=== PATIENT | male | born 1970 | race Caucasian/White ===

== ENCOUNTER 2022-12-03 09:00 | Outpatient (CLI) | payer BC, SELFPAY | END 2022-12-03 09:01 | disposition home or self-care (01) | LOC: NFLDREF 16:35 | PROVIDERS: PCP Family Medicine; Referring Provider Family Medicine; Visit Provider Physician Assistant Medical | DX: Z00.00 Encounter for general adult medical examination without abnormal findings (principal); Z12.5 Encounter for screening for malignant neoplasm of prostate; Z13.1 Encounter for screening for diabetes mellitus; E78.5 Hyperlipidemia, unspecified; Z86.010 Personal history of colon polyps; Z80.0 Family history of malignant neoplasm of digestive organs | CPT/HCPCS: 80048; 80061; 84153 ==

== ENCOUNTER 2023-04-23 13:52 | Outpatient (CLI) | payer BC, SELFPAY | END 2023-04-23 13:53 | disposition home or self-care (01) | PROVIDERS: PCP Emergency Medicine; Visit Provider Emergency Medicine | DX: E78.5 Hyperlipidemia, unspecified (principal); R07.9 Chest pain, unspecified; J10.1 Influenza due to other identified influenza virus with other respiratory manifestations; J18.9 Pneumonia, unspecified organism | CPT/HCPCS: 85651; 86140; 87040 ==

== ENCOUNTER 2024-04-01 12:42 | Emergency (ER) | payer BC, SELFPAY ==
[2024-04-01 12:59] VITALS: BP 121/80; PULSE 89; RESP 18; TEMP 36.4; O2SAT 98; BMI 25.2
--- NOTE | 2024-04-01 13:38 | CRLHL7_ITS ---
For Patients: As a result of the Century Cures Act, medical imaging exams and procedure reports are released immediately into your electronic medical record. You may view this report before your referring provider. If you have questions, please contact your health care provider. Indication: LUQ AND LOWER ABD PAIN Technique: CT abdomen/pelvis with IV contrast, 98 mL Isovue 370 Comparison: None Findings: Lower thorax: Minimal bibasilar atelectatic changes. Abdomen/pelvis: No suspicious hepatic lesions. Subcentimeter hypodensity in the liver near the diaphragm, likely a benign cyst/hemangioma. The gallbladder and biliary system, spleen, pancreas, and adrenal glands are unremarkable. The kidneys are normal in size and perfused and a normal fashion. No suspicious enhancing renal masses/lesions. Simple appearing subcentimeter renal cysts bilaterally. No renal calculi or hydroureteronephrosis. Mild circumferential bladder wall thickening. The seminal vesicles, prostate, and visualized external genitalia are within normal limits in appearance. There is no evidence of bowel obstruction. The appendix is unremarkable. There are some regions of questionable circumferential wall thickening of the colon, particularly the ascending colon, without significant pericolonic fat stranding. No free fluid or free air. No abscess. No abdominopelvic lymphadenopathy. The vasculature is unremarkable. Soft tissue/musculoskeletal: Small fat containing umbilical hernia. Small metallic BB seen in the subcutaneous fat of the left lower abdomen. The osseous structures are unremarkable in appearance for the patient`s age. Impression: 1. There are some regions of questionable circumferential wall thickening of the colon, particularly the ascending colon, without significant pericolonic fat stranding, nonspecific findings which can be seen with colitis in the appropriate clinical context. 2. No free fluid or free air. No abscess. 3. Mild circumferential bladder wall thickening, which can be seen with cystitis, to correlate with urinalysis. 4. Additional incidental findings as detailed above. Please note that all CT scans at this facility use dose modulation, iterative reconstruction, and/or weight-based dosing when appropriate to reduce radiation dose to as low as reasonably achievable. Dictated by Kennedy Snyder MD @ 04/01/2024 2:19:34 PM (Electronically Signed)
--- NOTE | 2024-04-01 13:53 | ED.ABDPAIN ---
HPI - Abdominal Pain General Date Seen: 04/01/24 Chief Complaint: Abdominal Pain Stated Complaint: stomach pain/ WBC = 18 Time Seen by Provider: 04/01/24 13:25 Source: patient Mode of arrival: ambulatory Limitations: no limitations History of Present Illness HPI narrative: Patient is a 53-year-old male presenting to the emergency department for abdominal pain. States started around 14:30 yesterday he started having left upper quadrant abdominal pain. He has had this pain before he states the last time he was constipated. He had several loose stools in symptoms seem to get better. Was able to eat that evening without issues until the late evening when he had a bowl of cereal. After that he began have symptoms again and more diarrhea. States he has not had a formed stool since before symptoms started. He was having difficulty sleeping throughout the night due to it was getting go to urgent care this morning but they were closed so came to the emergency department. States this morning the pain seemed to radiate to his lower abdomen region. At this time though he is pain free. Did have 1 episode of emesis last night but is not currently feeling nauseated. As he has never had C diff before in states stool looked brown. Has not had any recent antibiotics. States he thinks he may be developing lactose intolerance instead eights both occurrences occurred after having dairy. Denies any previous abdominal surgeries. Denies fevers, chills, chest pain, shortness of breath, lightheadedness, dizziness, dysuria. Related Data Home Medications ?Medication ?Instructions ?Recorded ?Confirmed No Known Home Medications 04/01/24 04/01/24 Allergies Allergy/AdvReac Type Severity Reaction Status Date / Time erythromycin base Allergy Severe Verified 04/01/24 14:03 azithromycin Allergy Intermediate Verified 04/01/24 14:03 Review of Systems Status of ROS Reports: 10 or more systems reviewed and unremarkable except as noted in History and below [facility] Medical History Influenza due to influenza virus, type B ?J10.1 - Influenza due to other identified influenza virus with other respiratory manifestations (ICD-10) CAP (community acquired pneumonia) ?J18.9 - Pneumonia, unspecified organism (ICD-10) Chest pain ?R07.9 - Chest pain, unspecified (ICD-10) Finger injury ?S69.90XA - Unspecified injury of unspecified wrist, hand and finger(s), initial encounter (ICD-10) Hyperlipidemia ?E78.5 - Hyperlipidemia, unspecified (ICD-10) Screening for diabetes mellitus ?Z13.1 - Encounter for screening for diabetes mellitus (ICD-10) Screening for hyperlipidemia ?Z13.220 - Encounter for screening for lipoid disorders (ICD-10) Screening for prostate cancer ?Z12.5 - Encounter for screening for malignant neoplasm of prostate (ICD-10) Tubular adenoma ?D36.9 - Benign neoplasm, unspecified site (ICD-10) Sessile serrated polyp of colon ?D12.6 - Benign neoplasm of colon, unspecified (ICD-10) Finger pain ?M79.646 - Pain in unspecified finger(s) (ICD-10) Surgical History History of esophagogastroduodenoscopy (EGD) ?Z98.890 - Other specified postprocedural states (ICD-10) History of elbow surgery ?Z98.890 - Other specified postprocedural states (ICD-10) History of colonoscopy with polypectomy ?Z98.890 - Other specified postprocedural states (ICD-10) ?Z86.010 - Personal history of colonic polyps (ICD-10) Family History Paternal Grandfather Colorectal cancer Uncle Skin cancer Throat cancer Social History Narrative: alcohol ingestion of more than 4 drinks/week former smoker marijuana use Smoking Status: Never smoker Exam Narrative: Exam Narrative: Const: Well-nourished, Well-developed, in no distress Eyes: PERRL, no conjunctival injection, and symmetrical lids HENT: Atraumatic external nose and ears. Moist mucous membranes. Neck: Symmetric, trachea midline, No thyromegaly. CVS: RRR, No murmurs or gallops. Peripheral pulses 2+ and equal in all extremities RESP: Unlabored respiratory effort. Clear to auscultation bilaterally. GI: Nontender/Nondistended, No rebound or guarding. MSK:Extremities w/o deformity, Normal Active ROM Skin: Warm, Dry. No rashes or lesions. Neuro: Normal Muscle tone, No focal neurological deficits. Psych: Awake, Alert, & Oriented x3. Appropriate mood and affect. Const: Vital Signs, click to edit/add: Vital Signs - 24 hr 04/01/24 12:59 04/01/24 14:36 04/01/24 15:02 Temperature 97.5 F L Pulse Rate 75 73 Pulse Rate [Pulse Oximeter] 89 Respiratory Rate 18 18 Blood Pressure 112/80 114/78 Blood Pressure [Ri ght Upper Arm] 121/80 Pulse Oximetry 98 95 94 Oxygen Delivery Me thod Room Air Room Air Course Vital Signs Vital signs: Initial Vital Signs Temperature 97.5 F L 04/01/24 12:59 Temperature Source Temporal Artery Scan 04/01/24 12:59 Pulse Rate 89 04/01/24 12:59 Respiratory Rate 18 04/01/24 12:59 Blood Pressure 121/80 04/01/24 12:59 Blood Pressure Mean 93 04/01/24 12:59 Pulse Oximetry 98 04/01/24 12:59 Oxygen Delivery Method Room Air 04/01/24 12:59 Vital Signs Temperature 97.5 F L 04/01/24 12:59 Pulse Rate 89 04/01/24 12:59 Respiratory Rate 18 04/01/24 12:59 Blood Pressure 121/80 04/01/24 12:59 Pulse Oximetry 98 04/01/24 12:59 Oxygen Delivery Method Room Air 04/01/24 12:59 Temperature 97.5 F L 04/01/24 12:59 Pulse Rate 73 04/01/24 15:02 Respiratory Rate 18 04/01/24 14:36 Blood Pressure 114/78 04/01/24 15:02 Pulse Oximetry 94 04/01/24 15:02 Oxygen Delivery Method Room Air 04/01/24 14:36 MDM - Abdominal Pain MDM Narrative Medical decision making narrative: Patient is a 53-year-old male presenting for abdominal pain and nausea. Symptoms resolved at this time. Based on his history this could be all from lactose intolerance has developed him but will do further evaluation to look for signs of pancreatitis, diverticulitis, constipation. This seems unlikely to be an SBO with no surgical history. Also seems unlikely to be gallbladder liver she is due to locations. Possible appendicitis since it does radiate down to his right lower quadrant. Does not want anything for pain or nausea at this time. Will order CBC, CMP, lipase, urinalysis. Lab work shows a white count of 18.62. previously He has had white blood cell count of 17, 11, 17. His most recent elevated white count was associated with a pneumonia. Unsure what is his baseline. It is neutrophil predominant CMP shows no concerning abnormalities. CT scan shows regions of questionable circumferential wall thickening of the colon your back could be related to colitis. Although his pain is and the left upper quadrant and this is seen in the ascending colon. There is also some mild circumferential bladder wall thickening. urinalysis shows no clear signs of a UTI. There was a hypodensity in the liver close likely a benign cyst versus hemangioma. I informed the patient of this. he was unable to provide a stool sample in the emergency department and overall I believe C diff is unlikely. at this time I will discharge him home for likely colitis. He does not require antibiotics at this time as he is otherwise well-appearing. a day informed to follow-up with primary care provider and to stay way from lactose until he can fully determine through his primary care provider if he is lactose intolerant. He is agreeable to this plan. Lab Data Labs: Lab Results 04/01/24 04/01/24 Range/Units 13:45 14:44 WBC 18.62 H (4.50-11.00) K/uL RBC 4.52 (4.30-5.90) m/uL Hgb 14.8 (13.5-17.5) gm/dL Hct 44.1 (37.0-53.0) % MCV 98 (80-100) fL MCH 33 (26-34) pg MCHC 34 (32-36) gm/dL RDW Coeff of Claudio 12.6 (11.5-15.5) % Plt Count 318 (140-440) K/uL Neut % (Auto) 83.4 H (42.0-72.0) % Lymph % (Auto) 7.7 L (20-44) % [place] % (Auto) 7.8 (0.0-11.0) % Eos % (Auto) 0.6 (0.0-7.0) % Baso % (Auto) 0.2 (0.0-3.0) % Neut # (Auto) 15.50 H (1.7-7.0) K/uL Lymph # (Auto) 1.40 (0.90-2.90) K/uL [place] # (Auto) 1.50 H (0.00-0.90) K/UL Eos # (Auto) 0.10 (0.00-0.50) K/uL Baso # (Auto) 0.00 (0.00-0.30) K/uL Abs Immat Gran (auto) 0.10 (0.00-0.30) K/uL Imm/Tot Granulo (auto) 0.3 % Sodium 136 (135-149) mmol/L Potassium 3.9 (3.6-5.1) mmol/L Chloride 100 (96-114) mmol/L Carbon Dioxide 28 (20-32) mmol/L Anion Gap 8 (7-15) mEq/L BUN 19 (7-30) mg/dL Creatinine 0.6 (0.5-1.5) mg/dL Estimated Creat Clear 155.13 Estimated GFR 117 ml/min Glucose 99 (60-115) mg/dL Calcium 9.1 (8.4-10.6) mg/dL Total Bilirubin 0.3 (0.1-1.5) mg/dL AST 22 (12-35) U/L ALT 19 (4-50) U/L Alkaline Phosphatase 63 (40-150) U/L Total Protein 7.5 (6.0-8.3) g/dL Albumin 4.3 (3.3-5.0) g/dL Lipase 51 (23-300) U/L Urine Color Yellow (Yellow) Urine Appearance Clear (Clear) Urine pH 5.5 (5.0-8.5) Ur Specific [place] <= 1.005 (1.000-1.030) Urine Protein Negative (Negative) Urine Glucose (UA) Negative (Negative) Urine Ketones Negative (Negative) Urine Blood Trace-intact A (Negative) Urine Nitrite Negative (Negative) Urine Bilirubin Negative (Negative) Urine Urobilinogen 0.2 (0.2-1.0) Ur Leukocyte Esterase Negative (Negative) Urine RBC 0-2 (0-2) Urine WBC 0-2 (0-5) Ur Squamous Epith Cells None (None-Few) Urine Bacteria Few A (None) Imaging Data CT scan abdomen pelvis: Radiologist's impression: 1. There are some regions of questionable circumferential wall thickening of the colon, particularly the ascending colon, without significant pericolonic fat stranding, nonspecific findings which can be seen with colitis in the appropriate clinical context. 2. No free fluid or free air. No abscess. 3. Mild circumferential bladder wall thickening, which can be seen with cystitis, to correlate with urinalysis. 4. Additional incidental findings as detailed above. Please note that all CT scans at this facility use dose modulation, iterative reconstruction, and/or weight-based dosing when appropriate to reduce radiation dose to as low as reasonably achievable. Dictated by Kennedy Snyder MD @ 04/01/2024 2:19:34 PM Discharge Plan Discharge Clinical Impression: Colitis Instructions: Colitis (ED) Additional Instructions: if symptoms worsen return for re-evaluation. Take the Zofran as needed for nausea. There was a likely benign cyst/hemangioma seen in your liver on the CT. You can follow-up with your primary care provider about this. Prescriptions: No Action No Known Home Medications Follow Up/Referrals: Jeanine Reza MD [Primary Care Provider] - Stand Alone Forms: [employer] Info Instructions
[2024-04-01 13:58] LABS: Basophils Percent Auto 0.2 % (0.0-3.0); Eosinophils Percent Auto 0.6 % (0.0-7.0); Hematocrit 44.1 % (37.0-53.0); Hemoglobin* 14.8 gm/dL (13.5-17.5); Immature Granulocytes Pct Auto 0.3 %; Lymphocytes Percent Auto 7.7 % (20-44); Mean Corpuscular HGB Conc 34 gm/dL (32-36); Mean Corpuscular Hemoglobin 33 pg (26-34); Mean Corpuscular Volume 98 fL (80-100); Monocytes Percent Auto 7.8 % (0.0-11.0); Neutrophils Percent Auto 83.4 % (42.0-72.0); Platelet Count* 318 K/uL (140-440); RDW Coefficient of Variation % 12.6 % (11.5-15.5); Red Blood Count 4.52 m/uL (4.30-5.90); White Blood Count* 18.62 K/uL (4.50-11.00)
[2024-04-01 14:00] LABS: Slide Review Reflex No
[2024-04-01 14:12] LABS: Albumin* 4.3 g/dL (3.3-5.0); Chloride* 100 mmol/L (96-114); Potassium* 3.9 mmol/L (3.6-5.1); Sodium* 136 mmol/L (135-149)
[2024-04-01 14:14] LABS: Creatinine* 0.6 mg/dL (0.5-1.5); Est. Creatinine Clearance* 155.13; Estimated Glomerular Filt Rate 117 ml/min
[2024-04-01 14:15] LABS: Alanine Aminotransferase* 19 U/L (4-50); Alkaline Phosphatase* 63 U/L (40-150); Anion Gap 8 mEq/L (7-15); Aspartate Amino Transferase* 22 U/L (12-35); Bilirubin Total* 0.3 mg/dL (0.1-1.5); Blood Urea Nitrogen* 19 mg/dL (7-30); Calcium* 9.1 mg/dL (8.4-10.6); Carbon Dioxide* 28 mmol/L (20-32); Glucose* 99 mg/dL (60-115); Lipase* 51 U/L (23-300); Total Protein* 7.5 g/dL (6.0-8.3)
[2024-04-01 14:36] VITALS: BP 112/80; PULSE 75; RESP 18; O2SAT 95
[2024-04-01 14:55] LABS: Appearance Urine Clear (Clear); Bilirubin Urine Negative (Negative); Blood Urine Trace-intact (Negative); Color Urine Yellow (Yellow); Glucose Urine Negative (Negative); Ketones Urine Negative (Negative); Leukocyte Esterase Urine Negative (Negative); Nitrite Urine Negative (Negative); Protein Urine Negative (Negative); Specific Gravity Urine <= 1.005 (1.000-1.030); Urobilinogen Urine 0.2 (0.2-1.0); pH Urine 5.5 (5.0-8.5)
[2024-04-01 15:02] VITALS: BP 114/78; PULSE 73; O2SAT 94
[2024-04-01 15:05] LABS: Bacteria Urine Few; RBC Urine 0-2 (0-2); WBC Urine 0-2 (0-5)
== END 2024-04-01 15:30 | disposition home or self-care (01) ==
PROVIDERS: Emergency Provider Student in an Organized Health Care Education/Training Program; PCP Emergency Medicine
DX: K52.9 Noninfective gastroenteritis and colitis, unspecified (principal)
CPT/HCPCS: 36415; 74177; 80053; 81001; 83690; 85025; 87086; 87493; 99284; 99285; Q9967

== ENCOUNTER 2024-04-02 14:25 | Outpatient (CLI) | payer BC, SELFPAY | END 2024-04-02 14:26 | disposition home or self-care (01) | PROVIDERS: PCP Emergency Medicine; Visit Provider Emergency Medicine | DX: K52.9 Noninfective gastroenteritis and colitis, unspecified (principal); R63.4 Abnormal weight loss | CPT/HCPCS: 84443; 86140; 87040 ==

== ENCOUNTER 2024-05-18 07:53 | Outpatient (CLI) | payer BC, SELFPAY ==
--- NOTE | 2024-05-18 09:20 | W.ANESCHARGE ---
Anesthesia Charges Start Date/Time Anesthesia Start Date: 05/18/24 Anesthesia Start Time: 08:59 Stop Date/Time Anesthesia Stop Date: 05/18/24 Anesthesia Stop Time: 09:19
--- NOTE | 2024-05-18 09:52 | W.ANESCHARGE ---
Anesthesia Charges Start Date/Time Anesthesia Start Date: 05/18/24 Anesthesia Start Time: 08:59 Stop Date/Time Anesthesia Stop Date: 05/18/24 Anesthesia Stop Time: 09:19
== END 2024-05-18 07:54 | disposition home or self-care (01) ==
LOC: OP CLINIC 07:54
PROVIDERS: PCP Emergency Medicine; Visit Provider Surgery
DX: K52.9 Noninfective gastroenteritis and colitis, unspecified (principal)
CPT/HCPCS: 00811; 45380; 88305